=== PATIENT | female | born 1985 | race Two or more races ===

== ENCOUNTER → 2021-06-22 11:47 | Outpatient (BNVA) | payer OTHER, SELFPAY | PROVIDERS: PCP Internal Medicine Hematology; Referring Provider Internal Medicine Hematology; Visit Provider Physician Assistant | DX: Z01.818 Encounter for other preprocedural examination (principal); E66.01 Morbid (severe) obesity due to excess calories; E28.2 Polycystic ovarian syndrome; M79.7 Fibromyalgia; K44.9 Diaphragmatic hernia without obstruction or gangrene; G43.909 Migraine, unspecified, not intractable, without status migrainosus; G47.33 Obstructive sleep apnea (adult) (pediatric); J45.909 Unspecified asthma, uncomplicated; Z68.43 Body mass index [BMI] 50.0-59.9, adult; Z86.69 Personal history of other diseases of the nervous system and sense organs | CPT/HCPCS: 99202 ==

== ENCOUNTER 2021-06-22 14:27 | Outpatient (REF) | payer OTHER, SELFPAY ==
--- NOTE | ~2021-06-22 | XR_ITS ---
EXAMINATION: XR CHEST CLINICAL INFORMATION: Preoperative evaluation. COMPARISON: None TECHNIQUE: 2 views of the chest were obtained. FINDINGS: The lungs are clear. The cardiomediastinal silhouette is normal in size. There is no pleural effusion or pneumothorax. No acute osseous abnormality. XR/XR chest 2V IMPRESSION: No acute cardiopulmonary findings.
--- NOTE | 2021-06-22 14:33 | ECG_ITS ---
Test Reason : preop Blood Pressure : / mmHG Vent. Rate : 070 BPM Atrial Rate : 070 BPM P-R Int : 130 ms QRS Dur : 096 ms QT Int : 368 ms P-R-T Axes : 045 028 021 degrees QTc Int : 397 ms Normal sinus rhythm Normal ECG Referred By: Belkys Moore Electronically Signed By:
== END 2021-06-22 14:28 | disposition home or self-care (01) ==
LOC: HO.XRAY 14:27
PROVIDERS: PCP Internal Medicine Hematology; Visit Provider Physician Assistant
DX: E66.01 Morbid (severe) obesity due to excess calories (principal); Z01.818 Encounter for other preprocedural examination
CPT/HCPCS: 71046; 93005

== ENCOUNTER → 2021-07-22 08:04 | Outpatient (BNVA) | payer OTHER, SELFPAY | PROVIDERS: PCP Internal Medicine Hematology; Visit Provider Dietitian, Registered | DX: E66.01 Morbid (severe) obesity due to excess calories (principal) | CPT/HCPCS: 97802 ==

== ENCOUNTER 2021-07-23 09:48 | Outpatient (REF) | payer OTHER, SELFPAY ==
--- NOTE | ~2021-07-23 | US_ITS ---
EXAMINATION: US COMPLETE ABDOMEN WITH LIVER ELASTOGRAPHY CLINICAL INFORMATION: Obesity. Pre procedure exam COMPARISON: None. TECHNIQUE: Real-time imaging of the abdominal viscera. Noninvasive ultrasound liver fibrosis assessment is performed using [employer] ElastPQ point quantification shear wave elastography (pSWE) with a C5-2 MHz transducer. Multiple elastography samples are obtained. FINDINGS: PANCREAS: The visualized pancreatic head and body are normal in appearance. The remainder of the pancreas is obscured from visualization by the overlying bowel gas. ABDOMINAL AORTA: The proximal, middle, and distal aortic segments are normal in caliber. INFERIOR VENA CAVA: Visualized portions are normal. LIVER: Normal. The liver demonstrates normal size, contour and echogenicity. No focal lesion or intrahepatic biliary duct dilatation. The right lobe measures 18 cm in length. The left lobe measures 16 cm in length. Portal flow is normal/hepatopedal Shear wave liver elastography median stiffness is 1.6 m/s (reference: normal median stiffness is 1.3 m/s or less). IQR/median stiffness to assess sampling precision is 0.28 (reference: good quality data set is IQR/median stiffness of 0.15 or less). GALLBLADDER: Normal. The gallbladder is physiologically distended without evidence of stones, sludge, polyps, wall thickening or pericholecystic fluid. COMMON BILE DUCT: Normal in caliber measuring 0.4 cm in diameter. RIGHT KIDNEY: Normal. No hydronephrosis. No renal calculi or focal parenchymal lesions. The kidney measures 11.6 cm in maximum dimension. LEFT KIDNEY: Normal. No hydronephrosis. No renal calculi or focal parenchymal lesions. The kidney measures 12.2 cm in maximum dimension. SPLEEN: Normal. The spleen measures 9.2 cm in maximum dimension. FREE FLUID: None. US/US abdomen comp w elastography IMPRESSION: 1. Impression: Limited visualization of the tail of the pancreas otherwise unremarkable exam. 2. Liver elastography: Limited due to sampling error. In the absence of other known clinical signs, rules out compensated advanced chronic liver disease. REFERENCE: Society of Radiologists in Ultrasound Liver Stiffness Thresholds (2020): LIVER STIFFNESS THRESHOLDS: *Liver Stiffness equal or less than 1.3 m/s: High probability of being normal. *Liver Stiffness less than 1.7 m/s: In the absence of other known clinical signs, rules out compensated advanced chronic liver disease. *Liver Stiffness 1.7-2.1 m/s: Suggestive of compensated advanced chronic liver disease but need further test for confirmation. *Liver Stiffness over 2.1 m/s: Rules in compensated advanced chronic liver disease. *Liver Stiffness over 2.4 m/s: Suggestive of clinically significant portal hypertension. QUALITY OF DATA SET: *IQR/Median value equal or less than 0.15 implies a quality data set. *IQR/Median value over 0.15 implies a poor quality data set. SIGNIFICANT CHANGE FROM PRIOR EXAM: Significant change if liver stiffness measurement is 10% or greater from prior exam. OTHER CONSIDERATIONS: The stage of liver fibrosis may be overestimated in the setting of acute hepatitis, liver inflammation, elevated liver function tests, hepatic vascular congestion, obstructive cholestasis, non-fasting state, and infiltrative diseases such as amyloidosis and lymphoma. In some patients with NAFLD, the liver stiffness thresholds for compensated advanced chronic liver disease may be lower. In causes other than viral hepatitis and NAFLD, liver stiffness thresholds are not well established.
--- NOTE | ~2021-07-23 | FL_ITS ---
EXAMINATION: XR GI SERIES CLINICAL INFORMATION: Preop. COMPARISON: None TECHNIQUE: Routine upper GI air-contrast study was performed FINDINGS: On oral administration of thick barium and effervescent granules. There is normal propagation of bolus from the oral cavity through the pharynx, esophagus into stomach without any evidence of obstruction, and narrowing or stricture. On placing patient supine and prone lying the course, caliber and peristalsis of the stomach, duodenal bulb and the CT is normal. There is a small diverticulum suspected in the third segment of the duodenum. FLUOROSCOPY TIME: 2.1 minutes DOSE AREA PRODUCT: 42.706 uGy-m2 (microgray-meter squared) FL/FL upper GI series IMPRESSION: Unremarkable upper GI air-contrast study.
== END 2021-07-23 09:49 | disposition home or self-care (01) ==
LOC: HO.US 09:48
PROVIDERS: Visit Provider Physician Assistant
DX: Z01.818 Encounter for other preprocedural examination (principal); E66.01 Morbid (severe) obesity due to excess calories; K21.9 Gastro-esophageal reflux disease without esophagitis
CPT/HCPCS: 74240; 76705; 76981

== ENCOUNTER 2021-08-05 09:17 | Outpatient (REF) | payer OTHER, SELFPAY ==
[2021-08-05 09:43] LABS: MANUAL DIFF FLAG NO
[2021-08-05 09:53] LABS: Hemoglobin 12.9 g/dl (12.0-16.0); Mean Corpuscular HGB Conc 32.3 g/dl (31.0-35.0); Mean Corpuscular Hemoglobin 27.8 pg (27.0-33.0); Mean Corpuscular Volume 86.2 fL (80.0-98.0); Mean Platelet Volume 11.1 fL (9.4-12.3); Platelet Count 239 X10*3/uL (160-400); Red Blood Count 4.64 X10*6/uL (4.20-5.50); Red Cell Distribution Width 13.8 % (11.0-16.0); White Blood Count 4.9 X10*3/uL (4.8-10.8)
[2021-08-05 09:54] LABS: Basophils Percent Auto 0.4 % (0-2); Eosinophils Absolute Auto 0.1 X10*3/uL (0.0-0.4); Imm Gran Abs Auto 0.01 X10*3/uL (0.00-0.03); Imm Gran Pct Auto 0.2 % (0.0-0.4); Lymphocytes Absolute Auto 1.7 X10*3/uL (1.2-4.9); Lymphocytes Percent Auto 34.3 % (20-40); Monocytes Absolute Auto 0.4 X10*3/uL (0.1-1.2); Monocytes Percent Auto 7.9 % (2-11); Neutrophils Absolute Auto 2.72 x10*3/uL (2.0-8.3); Neutrophils Percent Auto 55.2 % (45-73)
[2021-08-05 10:49] LABS: Estimated Average Glucose 97 mg/dL
[2021-08-05 11:13] LABS: Alanine Aminotransferase 10 U/L (0-31); Albumin Level 4.4 g/dL (3.5-5.0); Alkaline Phosphatase 72 U/L (39-117); Anion Gap 14 (12-20); Aspartate Amino Transferase 13 U/L (5-31); Bilirubin Total 0.5 mg/dL (0.0-1.0); Blood Urea Nitrogen 11 mg/dL (9-16); C Reactive Protein 0.85 mg/dL (< or = 0.50); Carbon Dioxide 23 mmol/L (22-29); Chloride 105 mmol/L (96-108); Cholesterol 259 mg/dL; Estimated Glomerular Filt Rate > 60; Glucose Random 87 mg/dL (60-115); HDL Cholesterol 42 mg/dL; Iron 64 mcg/dL (30-160); LDL Cholesterol Calculated 195 mg/dl; Percent Iron Saturation 16 % (15-50); Potassium 4.2 mmol/L (3.3-5.1); Sodium 138 mmol/L (135-145); Total Iron Binding Capacity 409 mcg/dL (228-428); Total Protein 7.7 g/dL (6.5-8.0); Triglycerides 111 mg/dL; Unsaturated Iron Binding 345 ug/dL
[2021-08-05 11:33] LABS: Insulin 13 uU/mL (2-29)
[2021-08-05 11:34] LABS: Ferritin 47 ng/mL (10-122); TSH reflex Free T4 0.54 uIU/mL (0.32-4.0); Vitamin D 25-OH Total 15.9 ng/mL (>30)
[2021-08-05 12:01] LABS: Folate 13.5 ng/mL (> or = 4.0); Vitamin B12 237 pg/mL (200-900)
[2021-08-06 11:57] LABS: H Pylori Breath Test Negative (Negative)
[2021-08-06 16:51] LABS: Calcium (PTHI) 10.2 mg/dL (8.6-10.2); PTHI 50 pg/mL (14-64)
[2021-08-09 11:26] LABS: Vitamin B1 6 nmol/L (8-30)
[2021-08-09 15:17] LABS: Zinc 69 mcg/dL (60-130)
[2021-08-10 12:46] LABS: Vitamin A 41 mcg/dL (38-98)
== END 2021-08-05 09:18 | disposition home or self-care (01) ==
LOC: HO.LAB 09:17
PROVIDERS: Visit Provider Physician Assistant
DX: Z01.818 Encounter for other preprocedural examination (principal); E66.01 Morbid (severe) obesity due to excess calories; Z68.42 Body mass index [BMI] 45.0-49.9, adult
CPT/HCPCS: 36415; 80053; 80061; 82306; 82607; 82728; 82746; 83013; 83036; 83525; 83540; 83970; 84425; 84443; 84590; 84630; 85025; 86140; 99211; 99212

== ENCOUNTER → 2021-08-12 08:38 | Outpatient (BNVA) | payer OTHER, SELFPAY | PROVIDERS: PCP Internal Medicine Hematology; Referring Provider Physician Assistant; Visit Provider Dietitian, Registered | DX: E66.01 Morbid (severe) obesity due to excess calories (principal) | CPT/HCPCS: 97803 ==

== ENCOUNTER → 2021-08-26 08:04 | Outpatient (BNVA) | payer OTHER, SELFPAY | PROVIDERS: PCP Internal Medicine Hematology; Visit Provider Physician Assistant | CPT/HCPCS: Q3014 ==

== ENCOUNTER → 2021-09-01 08:11 | Outpatient (BNVA) | payer OTHER, SELFPAY | PROVIDERS: PCP Internal Medicine Hematology; Referring Provider Physician Assistant; Visit Provider Dietitian, Registered | DX: E66.01 Morbid (severe) obesity due to excess calories (principal) | CPT/HCPCS: 97803 ==

== ENCOUNTER → 2021-10-05 08:13 | Outpatient (BNVA) | payer OTHER, SELFPAY | PROVIDERS: PCP Internal Medicine Hematology; Referring Provider Physician Assistant; Visit Provider Dietitian, Registered ==

== ENCOUNTER → 2021-11-19 08:12 | Outpatient (BNVA) | payer OTHER, SELFPAY | PROVIDERS: PCP Internal Medicine Hematology; Referring Provider Physician Assistant; Visit Provider Dietitian, Registered | DX: E66.01 Morbid (severe) obesity due to excess calories (principal); Z68.42 Body mass index [BMI] 45.0-49.9, adult | CPT/HCPCS: 97803 ==

== ENCOUNTER 2022-04-12 16:41 | Outpatient (REF) | payer OTHER, SELFPAY ==
[2022-04-12 16:56] LABS: MANUAL DIFF FLAG NO
[2022-04-12 18:25] LABS: Basophils Percent Auto 0.3 % (0-2); Eosinophils Absolute Auto 0.2 X10*3/uL (0.0-0.4); Eosinophils Percent Auto 2.4 % (0-4); Hematocrit 38.6 % (37.0-47.0); Hemoglobin 12.5 g/dl (12.0-16.0); Imm Gran Abs Auto 0.03 X10*3/uL (0.00-0.03); Imm Gran Pct Auto 0.4 % (0.0-0.4); Lymphocytes Percent Auto 26.7 % (20-40); Mean Corpuscular HGB Conc 32.4 g/dl (31.0-35.0); Mean Corpuscular Hemoglobin 27.7 pg (27.0-33.0); Mean Corpuscular Volume 85.4 fL (80.0-98.0); Monocytes Absolute Auto 0.4 X10*3/uL (0.1-1.2); Monocytes Percent Auto 5.4 % (2-11); Neutrophils Absolute Auto 4.9 x10*3/uL (2.0-8.3); Neutrophils Percent Auto 64.8 % (45-73); Platelet Count 275 X10*3/uL (160-400); Red Blood Count 4.52 X10*6/uL (4.20-5.50); Red Cell Distribution Width 13.6 % (11.0-16.0); White Blood Count 7.5 X10*3/uL (4.8-10.8)
[2022-04-12 18:33] LABS: C Reactive Protein 0.81 mg/dL (< or = 0.50)
[2022-04-12 18:52] LABS: TSH reflex Free T4 0.37 uIU/mL (0.32-4.0)
[2022-04-12 19:22] LABS: Erythrocyte Sedimentation Rate 29 MM/HR (0-20)
[2022-04-14 10:52] LABS: Thyroglobulin Antibodies <1 IU/mL (< or = 1)
[2022-04-14 10:56] LABS: Thyroid Peroxidase Antibodies 1 IU/mL (<9)
== END 2022-04-12 16:42 | disposition home or self-care (01) ==
LOC: HO.LAB 16:41
PROVIDERS: Visit Provider Internal Medicine Rheumatology
DX: E01.0 Iodine-deficiency related diffuse (endemic) goiter (principal); M54.2 Cervicalgia; R76.8 Other specified abnormal immunological findings in serum
CPT/HCPCS: 36415; 82550; 84443; 85025; 85652; 86140; 86376; 86800; 99212

== ENCOUNTER 2022-06-26 19:43 | Emergency (ER) | payer OTHER, SELFPAY ==
--- NOTE | 2022-06-26 | ECG_ITS ---
Test Reason : CHEST PAIN Blood Pressure : / mmHG Vent. Rate : 067 BPM Atrial Rate : 067 BPM P-R Int : 134 ms QRS Dur : 098 ms QT Int : 400 ms P-R-T Axes : 046 033 035 degrees QTc Int : 422 ms Normal sinus rhythm Normal ECG When compared with ECG of 19-OCT-2008 07:33, [place] interval has decreased Left anterior fascicular block is no longer Present Nonspecific T wave abnormality, improved in Inferior leads Nonspecific T wave abnormality no longer evident in Lateral leads Referred By: Generic ED Physician Electronically Signed By:CATRINA BROWN
--- NOTE | ~2022-06-26 | XR_ITS ---
EXAMINATION: XR chest 2V CLINICAL INFORMATION: Reason for Exam Left sided chest pain COMPARISON: No prior chest x-ray available in our system for comparison at the time of this dictation. TECHNIQUE: XR chest 2V Lungs and Krissy: Both lungs are clear. Pleura: Normal. Costophrenic angles are sharp. No pneumothorax. Heart: The heart is normal in size. Mediastinum: The mediastinum is within normal limits.. Bones: Skeletal structures included are normal for patient's age. XR/XR chest 2V IMPRESSION: Normal chest x-ray.
[2022-06-26 21:46] VITALS: BP 148/100; PULSE 73; RESP 18; TEMP 36.5; O2SAT 97; BMI 52.8
[2022-06-27 00:03] VITALS: BP 126/0; PULSE 68; RESP 16; TEMP 36.8; O2SAT 98
[2022-06-27 00:24] LABS: MANUAL DIFF FLAG NO
[2022-06-27 00:25] LABS: Basophils Percent Auto 0.5 % (0-2); Eosinophils Absolute Auto 0.2 X10*3/uL (0.0-0.4); Hemoglobin 13.5 g/dl (12.0-16.0); Imm Gran Abs Auto 0.02 X10*3/uL (0.00-0.03); Imm Gran Pct Auto 0.3 % (0.0-0.4); Lymphocytes Absolute Auto 2.8 X10*3/uL (1.2-4.9); Mean Corpuscular HGB Conc 32.9 g/dl (31.0-35.0); Mean Corpuscular Hemoglobin 28.5 pg (27.0-33.0); Mean Corpuscular Volume 86.5 fL (80.0-98.0); Mean Platelet Volume 10.2 fL (9.4-12.3); Monocytes Absolute Auto 0.5 X10*3/uL (0.1-1.2); Monocytes Percent Auto 6.4 % (2-11); Neutrophils Absolute Auto 3.9 x10*3/uL (2.0-8.3); Neutrophils Percent Auto 51.8 % (45-73); Platelet Count 242 X10*3/uL (160-400); Red Blood Count 4.74 X10*6/uL (4.20-5.50); Red Cell Distribution Width 13.8 % (11.0-16.0); White Blood Count 7.5 X10*3/uL (4.8-10.8)
[2022-06-27 00:44] LABS: Alanine Aminotransferase 16 U/L (0-31); Albumin Level 4.5 g/dL (3.5-5.0); Alkaline Phosphatase 87 U/L (39-117); Anion Gap 15 (12-20); Aspartate Amino Transferase 14 U/L (5-31); Bilirubin Total 0.2 mg/dL (0.0-1.0); Blood Urea Nitrogen 16 mg/dL (9-16); Calcium 9.5 mg/dL (8.4-10.2); Carbon Dioxide 24 mmol/L (22-29); Chloride 103 mmol/L (96-108); Creatinine Clr Calc Pharmacy 122.6; Estimated Glomerular Filt Rate > 60; Glucose Random 81 mg/dL (60-115); Potassium 4.4 mmol/L (3.3-5.1); Sodium 138 mmol/L (135-145)
[2022-06-27 00:55] LABS: Troponin-I High Sensitivity < 3.5 ng/L (<3.5-17.0)
[2022-06-27 04:54] VITALS: BP 148/95; PULSE 74; RESP 18; O2SAT 99
[2022-06-27 09:41] VITALS: BP 167/84; PULSE 78; RESP 18; TEMP 36.4; O2SAT 98
[2022-06-27 10:31] LABS: Prothrombin Time 11.8 SEC (10.0-13.1)
[2022-06-27 10:34] LABS: Troponin-I High Sensitivity < 3.5 ng/L (<3.5-17.0)
--- NOTE | 2022-06-27 10:54 | ED_ITS ---
HPI - General Adult General Chief complaint: General Medical Stated complaint: Pins and needles on L side of chest Time Seen by Provider: 06/27/22 10:41 Source: patient Mode of arrival: ambulatory Limitations: no limitations History of Present Illness HPI narrative: 37-year-old female history of Sjorgen's, fibromyalgia, asthma, NOEL presents to the ED for two weeks of chest pain described as chest pain on movement of torsos, and left upper extremity and pin and needles sensation. patient denies pleurisy, leg swelling, calf pain, being on any control pills, recent long travel or, recent surgery. Patient denies any recent trauma. Related Data Home Medications Medication Instructions Recorded Confirmed acetaminophen 500 mg tablet 500 mg PO Q6H PRN pain 06/22/21 04/12/22 albuterol sulfate 90 mcg/actuation 0 mcg inhalation 06/22/21 aerosol inhaler [id number]-[id number]-qplsrqyz 1 cap PO Q4H PRN headache 06/22/21 04/12/22 50 mg-325 mg-40 mg capsule cyclobenzaprine 5 mg tablet 0 mg PO 06/22/21 ergocalciferol (vitamin D2) 1,250 1,250 mcg PO QWEEK 06/22/21 04/12/22 mcg (50,000 unit) capsule metformin 500 mg tablet 500 mg PO BID 06/22/21 04/12/22 metoclopramide HCl 5 mg tablet 5 mg PO TID PRN nausea/vomiting 06/22/21 04/12/22 metoprolol succinate 100 mg 100 mg PO BEDTIME 06/22/21 04/12/22 tablet,extended release 24 hr montelukast 10 mg tablet 10 mg PO DAILY 06/22/21 04/12/22 valacyclovir 500 mg tablet 500 mg PO DAILY 06/22/21 04/12/22 ibuprofen 800 mg tablet 800 mg PO TID PRN 04/12/22 04/12/22 pregabalin 150 mg capsule 150 mg PO BID 04/12/22 04/12/22 riboflavin (vitamin B2) 50 mg 50 mg PO DAILY 04/12/22 04/12/22 tablet Previous Rx's Medication Instructions Recorded cyanocobalamin (vitamin B-12) 500 500 mcg PO DAILY #30 tabs 08/05/21 mcg tablet thiamine HCl (vitamin B1) 50 mg 50 mg PO DAILY #30 tabs 08/10/21 tablet naproxen 500 mg tablet 500 mg PO BID PRN pain 10 days #20 06/27/22 tabs Allergies Allergy/AdvReac Type Severity Reaction Status Date / Time sulfamethoxazole Allergy Severe Anaphylaxis Verified 04/12/22 16:03 [From Bactrim] trimethoprim [From Bactrim] Allergy Severe Anaphylaxis Verified 04/12/22 16:03 Pptdzgs-AHG-CiN Reductase AdvReac Intermediate Muscle Pain Verified 04/12/22 16:03 Inhibitor Review of Systems 2 Review of Systems: left sided chest pain pin/needles and pain on range of motion of torso and left upper extremity Yes all other systems are reviewed and are negative [facility] Past Medical History Surgical History Hx of appendectomy Hx of wisdom tooth extraction Family History Family History Mother Heart disease Father No problems noted. Sister No problems noted. Son No problems noted. Social History Social History Alcohol intake: never Patient Tobacco Use Status: Never used Tobacco Advance Directives: No Advance Directives Information Provided: No Physical Exam ED Vital Signs: Vital Signs - 24 hr 06/26/22 21:46 06/27/22 00:03 06/27/22 04:54 Temperature 97.7 F 98.2 F Pulse Rate 73 68 74 Respiratory Rate 18 16 18 Blood Pressure 148/100 H 126/0 L 148/95 H Pulse Oximetry 97 98 99 Oxygen Delivery Method Room Air Room Air Room Air 06/27/22 09:41 Temperature 97.6 F Pulse Rate 78 Respiratory Rate 18 Blood Pressure 167/84 H Pulse Oximetry 98 Oxygen Delivery Method Room Air BMI result Body Mass Index 52.8 Const General: cooperative, healthy appearing, comfortable, no acute distress, well developed, alert, awake and Physically active Orientation/consciousness: oriented to time and patient oriented x3 HENMT Head: Yes normal to inspection, Yes No palpable skull fracture present, Yes normocephalic, No atraumatic and No abrasion Eyes General: appearance normal, both eyes and all related structures Neck Neck: Yes normal visual inspection, Yes full ROM, Yes no lymphadenopathy, Yes no meningeal signs, Yes trachea midline, Yes supple, No anterior neck swelling and No tender Chest Chest palpation & inspection: normal inspection of the chest Breast/axilla inspection: normal inspection of the breasts Chest/axillae images: 1. positive for chest wall tenderness on palpation. positive for pain on range of motion of torso and arm. negative for rash, lesions, ecchymosis, or crepitus Resp Effort & Inspection: normal respiratory effort and able to speak in complete sentences Auscultation: clear to auscultation bilaterally Cardio Jugular venous distension: no JVD Heart sounds: S1 normal heart sound present and S2 normal heart sound present GI Inspection: Yes normal to inspection and No abdominal wall ecchymosis Palpation (GI): Soft to palpation, not firm, nontender, no guarding and not rigid General: No CVA tenderness and Yes no CVA tenderness Back/Spine/Pelvis Back: no CVA tenderness, No CVA tenderness and No back tenderness Skin General skin exam: no rashes or lesions noted and elasticity normal Neuro General: oriented to time, patient oriented x3, gait normal and no meningeal signs Cranial nerves: Yes CN's II-XII intact bilaterally Extrem Other: lower extremities negative for swelling, pitting edema, or calf tendrness General: Yes normal to inspection and Yes full ROM Psych Appearance: grossly normal, well kempt and not disheveled Course Course Course Narrative: Patient been in then ER waiting room for pulmonary 12 hours and had a normal EKG and 1st troponin. Will order chest x-ray and 2nd troponin. Symptoms for 2 weeks most likely costochondritis. Patient denies any PE symptoms. Reevaluation(s) Reevaluation #1: EKG negative StEMI. Second troponin negative. Not suspecting PE. Perc score 0. No risk factors for PE. Heart score 1. Diagnosis costochondritis. patient well-appearing Time: 12:20 Medical Decision Making MDM Narrative Medical decision making narrative: Costochondritis Lab Data Result diagrams: 06/27/22 00:19 06/27/22 00:19 Labs: Lab Results 06/27/22 06/27/22 06/27/22 Range/Units 00:19 00:19 00:19 WBC 7.5 (4.8-10.8) X10*3/uL RBC 4.74 (4.20-5.50) X10*6/uL Hgb 13.5 (12.0-16.0) g/dl Hct 41.0 (37.0-47.0) % MCV 86.5 (80.0-98.0) fL MCH 28.5 (27.0-33.0) pg MCHC 32.9 (31.0-35.0) g/dl RDW 13.8 (11.0-16.0) % Plt Count 242 (160-400) X10*3/uL MPV 10.2 (9.4-12.3) fL Immature Gran % (Auto) 0.3 (0.0-0.4) % Neut % (Auto) 51.8 (45-73) % Lymph % (Auto) 38.0 (20-40) % [place] % (Auto) 6.4 (2-11) % Eos % (Auto) 3.0 (0-4) % Baso % (Auto) 0.5 (0-2) % Lymph # (Auto) 2.8 (1.2-4.9) X10*3/uL [place] # (Auto) 0.5 (0.1-1.2) X10*3/uL Eos # (Auto) 0.2 (0.0-0.4) X10*3/uL Baso # (Auto) 0.0 (0.0-0.2) X10*3/uL Abs Immat Gran (auto) 0.02 (0.00-0.03) X10*3/uL Absolute Neuts (auto) 3.9 (2.0-8.3) x10*3/uL Absolute Nucleated RBC 0.000 (0.0-0.012) X10*3/uL Nucleated RBC % (auto) 0.0 (0.0-0.2) /100WBC PT (10.0-13.1) SEC INR (0.9-1.1) APTT (26.0-36.4) SEC Sodium 138 (135-145) mmol/L Potassium 4.4 (3.3-5.1) mmol/L Chloride 103 (96-108) mmol/L Carbon Dioxide 24 (22-29) mmol/L Anion Gap 15 (12-20) BUN 16 (9-16) mg/dL Creatinine 0.81 (0.5-1.4) mg/dL Estim Creat Clear Calc 122.6 Estimated GFR > 60 Random Glucose 81 (60-115) mg/dL Calcium 9.5 (8.4-10.2) mg/dL Total Bilirubin 0.2 (0.0-1.0) mg/dL AST 14 (5-31) U/L ALT 16 (0-31) U/L Alkaline Phosphatase 87 D (39-117) U/L Troponin I High Sens < 3.5 (<3.5-17.0) ng/L Total Protein 8.0 (6.5-8.0) g/dL Albumin 4.5 (3.5-5.0) g/dL 06/27/22 06/27/22 Range/Units 09:54 09:54 WBC (4.8-10.8) X10*3/uL RBC (4.20-5.50) X10*6/uL Hgb (12.0-16.0) g/dl Hct (37.0-47.0) % MCV (80.0-98.0) fL MCH (27.0-33.0) pg MCHC (31.0-35.0) g/dl RDW (11.0-16.0) % Plt Count (160-400) X10*3/uL MPV (9.4-12.3) fL Immature Gran % (Auto) (0.0-0.4) % Neut % (Auto) (45-73) % Lymph % (Auto) (20-40) % [place] % (Auto) (2-11) % Eos % (Auto) (0-4) % Baso % (Auto) (0-2) % Lymph # (Auto) (1.2-4.9) X10*3/uL [place] # (Auto) (0.1-1.2) X10*3/uL Eos # (Auto) (0.0-0.4) X10*3/uL Baso # (Auto) (0.0-0.2) X10*3/uL Abs Immat Gran (auto) (0.00-0.03) X10*3/uL Absolute Neuts (auto) (2.0-8.3) x10*3/uL Absolute Nucleated RBC (0.0-0.012) X10*3/uL Nucleated RBC % (auto) (0.0-0.2) /100WBC PT 11.8 (10.0-13.1) SEC INR 1.0 (0.9-1.1) APTT 30.0 (26.0-36.4) SEC Sodium (135-145) mmol/L Potassium (3.3-5.1) mmol/L Chloride (96-108) mmol/L Carbon Dioxide (22-29) mmol/L Anion Gap (12-20) BUN (9-16) mg/dL Creatinine (0.5-1.4) mg/dL Estim Creat Clear Calc Estimated GFR Random Glucose (60-115) mg/dL Calcium (8.4-10.2) mg/dL Total Bilirubin (0.0-1.0) mg/dL AST (5-31) U/L ALT (0-31) U/L Alkaline Phosphatase (39-117) U/L Troponin I High Sens < 3.5 (<3.5-17.0) ng/L Total Protein (6.5-8.0) g/dL Albumin (3.5-5.0) g/dL ECG Data Interpretation: Normal sinus rhythm. Ventricular rate 67. Pr interval 134 pr QRS 98. QTC 422. Negative STEMI Discharge Plan Discharge Clinical Impression: Costochondritis, acute, Chest pain Patient Disposition: Home, Self-Care Instructions: Chest Pain (DC), Costochondritis (ED) Additional Instructions: Your EKG and blood work came back negative for heart attack. Chest x-ray came back negative for pneumonia. Please follow-up with the primary care provider. Return to the ED for any chest pain on inspiration, leg swelling, calf pain, coughing up blood, fever, chills, shortness of breath, worsening chest pain, or any other concerning symptoms. Prescriptions: New naproxen 500 mg tablet 500 mg PO BID PRN (Reason: pain) 10 Days Qty: 20 0RF No Action cyanocobalamin (vitamin B-12) 500 mcg tablet 500 mcg PO DAILY Qty: 30 6RF thiamine HCl (vitamin B1) 50 mg tablet 50 mg PO DAILY Qty: 30 6RF cyclobenzaprine 5 mg tablet 0 mg PO ergocalciferol (vitamin D2) 1,250 mcg (50,000 unit) capsule 1,250 mcg PO QWEEK metoclopramide HCl 5 mg tablet 5 mg PO TID PRN (Reason: nausea/vomiting) valacyclovir 500 mg tablet 500 mg PO DAILY metoprolol succinate 100 mg tablet extended release 24 hr 100 mg PO BEDTIME nagxubbacd-zacbbxkptqdnn-pgaj 50-325-40 mg capsule 1 cap PO Q4H PRN (Reason: headache) montelukast 10 mg tablet 10 mg PO DAILY metformin 500 mg tablet 500 mg PO BID albuterol sulfate 90 mcg/actuation HFA aerosol inhaler 0 mcg inhalation acetaminophen 500 mg tablet 500 mg PO Q6H PRN (Reason: pain) ibuprofen 800 mg tablet 800 mg PO TID PRN pregabalin 150 mg capsule 150 mg PO BID riboflavin (vitamin B2) 50 mg tablet 50 mg PO DAILY Stand Alone Forms: Work/School Release Interventions: ED Discharge Assessment Last Done: 06/27/22 12:29 Discharge Date/Time: 06/27/22 12:30 Print Language: Lithuanian
== END 2022-06-27 12:30 | disposition home or self-care (01) ==
PROVIDERS: Physician Assistant; Emergency Provider Internal Medicine
DX: M94.0 Chondrocostal junction syndrome [Tietze] (principal); R07.89 Other chest pain; Z79.899 Other long term (current) drug therapy
CPT/HCPCS: 36415; 71046; 80053; 84484; 85025; 85610; 85730; 93005; 99284

== ENCOUNTER → 2022-07-29 09:24 | Outpatient (BNVA) | payer OTHER, SELFPAY | PROVIDERS: PCP Registered Nurse; Visit Provider Internal Medicine Rheumatology | DX: M79.7 Fibromyalgia (principal); R76.8 Other specified abnormal immunological findings in serum; M54.2 Cervicalgia | CPT/HCPCS: 99212 ==

== ENCOUNTER 2022-08-11 13:17 | Outpatient (REF) | payer OTHER, SELFPAY ==
[2022-08-11 14:25] LABS: Anion Gap 17 (12-20); Blood Urea Nitrogen 12 mg/dL (9-16); Calcium 10.2 mg/dL (8.4-10.2); Carbon Dioxide 25 mmol/L (22-29); Chloride 101 mmol/L (96-108); Estimated Glomerular Filt Rate > 60; Glucose Random 83 mg/dL (60-115); Potassium 4.5 mmol/L (3.3-5.1); Sodium 138 mmol/L (135-145)
[2022-08-11 14:47] LABS: Thyroid Stimulating Hormone 0.48 uIU/mL (0.32-4.0)
[2022-08-11 14:53] LABS: Erythrocyte Sedimentation Rate 32 MM/HR (0-20)
[2022-08-13 10:07] LABS: Lyme Abs Screen <0.90 index
[2022-08-16 15:15] LABS: ANA Pattern 2 Nuclear, Speckled; Anti Nuclear Antibody Pattern Nuclear, Nucleolar; Anti Nuclear Antibody Screen POSITIVE (NEGATIVE)
== END 2022-08-11 13:18 | disposition home or self-care (01) ==
LOC: HO.LAB 13:17
PROVIDERS: PCP Registered Nurse; Visit Provider Psychiatry & Neurology Neurology
DX: G37.9 Demyelinating disease of central nervous system, unspecified (principal); M35.0C Sjogren syndrome with dental involvement
CPT/HCPCS: 36415; 80048; 82550; 84436; 84443; 85652; 86038; 86039; 86617; 86618

== ENCOUNTER 2022-09-02 14:40 | Outpatient (REF) | payer OTHER, SELFPAY ==
--- NOTE | ~2022-09-02 | US_ITS ---
EXAMINATION: US THYROID CLINICAL INFORMATION: Goiter COMPARISON: None TECHNIQUE: Linear transducer grayscale and color Doppler examination with attention to the region of the thyroid. FINDINGS: SIZE: Measurements of the thyroid lobes and nodules are given in sagittal, anteroposterior and transverse dimensions respectively. Right Thyroid Lobe: 5.5 x 1.6 x 1.9 cm, volume 8.7 mL. Parenchyma: The gland echotexture is heterogeneous. Thyroid vascularity is normal. Left Thyroid Lobe: 4.9 x 1.5 x 1.7 cm, volume 6.3 mL. Parenchyma: The gland echotexture is heterogeneous. Thyroid vascularity is normal. Isthmus: 0.5 cm in maximum AP dimension. Estimated total number of nodules greater than or equal to 1 cm: 0. [employer] [place] [place] nodules are described as follows: 1. Location: Left. Size: 0.3 x 0.2 x 0.3 cm, volume 0.01 mL. Nodule characteristics: Composition: Cystic(0). ACR TI-RADS total points: 0 ACR TI-RADS category: 1 NODES: No lymphadenopathy is seen in the tissue surrounding the thyroid gland. US/US thyroid IMPRESSION: Enlarged heterogeneous thyroid gland with nonsuspicious subcentimeter right thyroid nodule. ACR TI-RADS RECOMMENDATION REFERENCE: Ultrasound-guided fine-needle aspiration, followup ultrasound, no further follow up. * TR1 (0 point) and TR 2 (2 points): No FNA or follow up. * TR3 (3 points): FNA if more than or equal to 2.5 cm in maximum dimension, followup ultrasound in 1, 3 and 5 years if 1.5 to 2.4 cm in maximum dimension. * TR4 (4-6 points): FNA if more than or equal to 1.5 cm in maximum dimension, followup ultrasound in 1, 2, 3 and 5 years if 1 to 1.4 cm in maximum dimension. * TR5 (more than or equal to 7 points): FNA if more than or equal to 1 cm in maximum dimension, followup ultrasound every year for 5 years if 0.5 to 0.9 cm in maximum dimension. * TR3, TR4 or TR5 nodules that are below the size threshold for followup receive no follow up.
== END 2022-09-02 14:41 | disposition home or self-care (01) ==
LOC: HO.US 14:40
PROVIDERS: Visit Provider Internal Medicine Rheumatology
DX: E01.2 Iodine-deficiency related (endemic) goiter, unspecified (principal); M54.2 Cervicalgia
CPT/HCPCS: 76536

== ENCOUNTER 2023-03-22 11:31 | Outpatient (REF) | payer OTHER, SELFPAY ==
[2023-03-22 13:46] LABS: Erythrocyte Sedimentation Rate 30 MM/HR (0-20)
== END 2023-03-22 11:32 | disposition home or self-care (01) ==
LOC: HO.LAB 11:31
PROVIDERS: PCP Internal Medicine Hematology; Visit Provider Psychiatry & Neurology Neurology
DX: M79.7 Fibromyalgia (principal); M35.0C Sjogren syndrome with dental involvement
CPT/HCPCS: 36415; 82550; 85652; 99212